=== PATIENT | female | born 1960 | race Caucasian/White ===

== ENCOUNTER 2016-05-28 18:23 | Emergency (ER) | payer BC ==
[~2016-05-28] VITALS: Ht 170.2 cm; Wt 53.9 kg
[~2016-05-28 18:23] MED LIST: AMBIZINE25 MG PO; ASPIR 8181 M1 PO; BENADRYL25 MG PO; COUMADIN1 MG PO; COUMADIN3 MG PO; LIDOCAINE700 MG TD; MECLIZINE HCL12.5 M1 PO; PANTOPRAZOLE SO40 MG PO; PROMETHAZINE HC25 M1 PO; SENNA-TIME S T1 EACH PO; THERAGRAN1 TABLET PO; TRAMADOL HCL50 MG PO; Tums,OsCal PO; VALIUM10 MG PO; VALIUM2 MG PO; VITAMIN D2000 UNIT PO; ZOFRAN4 MG PO; ZONEGRAN100 MG PO
[2016-05-28 19:26] LABS: HEMATOCRIT 41.1 % (36.0-46.0); MCH 30.9 PG (29.0-34.0); MCHC 34.8 G/DL (30.0-36.0); MCV 88.8 FL (83-99); MEAN PLAT.VOLUME 9.4 uM^3 (9.5-12.4); PLATELET COUNT 313 K/uL (156-360); RBC DIS.WIDTH-CV 13.1 % (11.8-14.6); RBC DIS.WIDTH-SD 39.7 % (39-53); RED BLOOD COUNT 4.63 M/uL (3.80-5.20); WHITE BLOOD COUNT 11.5 K/uL (4.1-10.2)
[2016-05-28 19:34] LABS: CHLORIDE 106 mEq/L (99-109); POTASSIUM 3.8 mEq/L (3.7-5.4); SODIUM 138 mEq/L (136-147)
[2016-05-28 19:36] LABS: GLUCOSE 143 mg/dL (70-99)
[2016-05-28 19:37] LABS: ANION GAP 11 MEQ/L (2-14)
[2016-05-28 19:38] LABS: TOTAL BILIRUBIN 0.7 mg/dL (0.0-1.0)
[2016-05-28 19:39] LABS: ALKALINE PHOSPHATASE 87 IU/L (3-129)
[2016-05-28 19:40] LABS: GFR ESTIMATE (CALCULATED) > 59 mL/min/
[2016-05-28 19:41] LABS: UREA NITROGEN (BUN) 17 mg/dL (9-23)
[2016-05-28 19:43] LABS: LIPASE 19 U/L (1.0-51.0)
[2016-05-28 19:51] LABS: INFLUENZA A VIRAL ANTIGEN NEGATIVE; INFLUENZA B VIRAL ANTIGEN NEGATIVE
[2016-05-28] MEDS ORDERED: ALENDRONATE SOD35 MG PO (19:54)
[2016-05-28] MEDS ORDERED: ZYRTEC10 M3 PO (19:55)
[2016-05-28 20:39] LABS: ADD MIUA? NO; BILIRUBIN NEGATIVE; BLOOD NEGATIVE; COLOR YELLOW ((YELLOW)); GLUCOSE (STRIP) NEGATIVE; KETONES 5; LEUKOCYTES NEGATIVE; NITRITE NEGATIVE; PROTEIN (STRIP) NEGATIVE; SPECIFIC GRAVITY 1.015 (1.000-1.030); UCUL ADDED? NO; UROBILINOGEN 0.2 MG/DL (0.2-1.0)
[2016-05-28 21:03] LABS: TROP-I INTERPRETATION NEGATIVE; TROPONIN-I < 0.01 ng/mL (0.0-0.30)
[2016-05-28 21:10] LABS: D-DIMER ELISA 0.43 mg/L FEU (< 0.57)
[2016-05-28 22:05] LABS: TROP-I INTERPRETATION NEGATIVE; TROPONIN-I < 0.01 ng/mL (0.0-0.30)
[2016-05-28 23:08] VITALS: BP 96/64
== END 2016-05-28 23:09 | disposition home or self-care (01) ==
LOC: EME 18:23
PROVIDERS: Physician Assistant Medical
DX: R11.2 Nausea with vomiting, unspecified (principal); R10.9 Unspecified abdominal pain; J45.909 Unspecified asthma, uncomplicated; M81.0 Age-related osteoporosis without current pathological fracture
CPT/HCPCS: 71020; 74176; 80053; 81003; 83690; 84484; 85027; 85379; 87502; 93005; 99281; 99284; J1885; J2405; J2550; J7030